=== PATIENT | female | born 1985 | race Caucasian/White ===

== ENCOUNTER 2018-03-25 10:35 | Inpatient (IN) | payer OTHER ==
--- NOTE | 2018-03-24 08:46 | PDOC.LDHP ---
Labor and Delivery H&P Chief complaint: scheduled section HPI: 32 yo @ 39w0d by 13 week sono presents for RCD, h/o CS x3. Current gestational age (weeks): 39 Due date: 04/01/18 Dating criteria: second trimester ultrasound Grav: 4 Para: 3 OB History Details: 3 term CS Current complications: none Abnormal US findings: No Current medications: none Previous surgical history: low tranverse CS, other (Lasik) Allergies/Adverse Reactions: Allergies Allergy/AdvReac Type Severity Reaction Status Date / Time No Known Allergies Allergy Verified 09/09/13 15:15 Social history: none - Physical Exam Vital signs reviewed and normal: yes General: NAD Heart: RRR Lungs: nonlabored breathing Abdomen: gravid Extremeties: no edema FHT: category 1 (130s, mod alona, +accels, no decels) [place] contractions every: none - OB Labs Blood type: O RH: positive Antibody Screen: negative HIV: negative RPR: negative HEPSAg: negative 1 hour GCT: negative GBS: negative Urine drug screen: negative Rubella: immune Additional Labs: AFP tetra negative - Assessment 39w0d IUP H/O CS x3 - Plan Plan: to OR for section, informed consent obtained, anesthesia consult for pain management
[2018-03-25] MEDS ORDERED: PHENYLEPHRINE-NS 100 MCG/ML 10 ML SYRINGE ONE ×2 (10:47→14:44)
[2018-03-25] MEDS ORDERED: Lidocaine 1% PF 5 ML VIAL ONE ×2 (10:47→14:44)
[2018-03-25] MEDS ORDERED: ePHEDrine/0.9% NaCl/PF SYRINGE 50 mg/10 ml ONE ×2 (10:47→15:28)
[2018-03-25] MEDS ORDERED: Ondansetron HCl/PF 4 MG/2 ML Vial ONE ×2 (10:47→15:47)
[2018-03-25 12:13] VITALS: BMI 32.8
[2018-03-25] MEDS ORDERED: Bicitra 30 ML UDCUP ONE (12:17)
[2018-03-25] MEDS ORDERED: CEFAZOLIN/Water 2 GM/20 ML SYRINGE ONE (12:17)
[2018-03-25] MEDS ORDERED: Ondansetron HCl/PF 4 MG/2 ML Vial IVP PRN ×3 (12:21→20:58)
[2018-03-25] MEDS ORDERED: CEFAZOLIN/Water 2 GM/20 ML SYRINGE SLOW IVP SCH (12:30)
[2018-03-25] MEDS ORDERED: Bicitra 30 ML UDCUP PO SCH (12:30)
[2018-03-25] MEDS ORDERED: Lactated Ringer's 1,000 ML IV SCH (12:30)
[2018-03-25 12:47] LABS: Hemoglobin 12.9 g/dL (12.0-16.0); Mean Corpuscular HGB CONC 33.7 g/dL (32.0-36.0); Mean Corpuscular Hemoglobin 27.3 pg (27.0-31.0); Mean Corpuscular Volume 80.9 fL (78.0-98.0); Platelet Count 253 thou/uL (130-400); RBC Distribution Width 16.1 % (11.5-14.5); Red Blood Cell (RBC) Count 4.73 mill/uL (4.20-5.40); White Blood Cell (WBC) Count 6.5 thou/uL (4.8-10.8)
[2018-03-25] MEDS: Lactated Ringer's 1,000 ML IV SCH (12:57)
[2018-03-25 13:24] LABS: HBSAg Index 0.18 S/CO (0-0.99); Hep B Surf Ag Non-Reactive S/CO (NonReactive)
[2018-03-25 13:34] LABS: Syphilis Antibody Nonreactive (Nonreactive); Syphilis Antibody Index 0.02 S/CO (<1.00 Non-Reactive)
[2018-03-25] MEDS ORDERED: Morphine PF 1 MG/ML SYR ONE (14:42)
[2018-03-25] MEDS ORDERED: Oxytocin 10 UNITS/ML VIAL ONE (14:44)
[2018-03-25] MEDS ORDERED: Bupivacaine 0.75% W/DEXTROSE 8.25% 2 ML AMP ONE (14:44)
[2018-03-25] MEDS ORDERED: Ketorolac Tromethamine 30 MG/ML VIAL ONE (15:47)
[2018-03-25] MEDS ORDERED: NS / Oxytocin 40 units/1000ml 1,000 ML ONE (16:20)
--- NOTE | 2018-03-25 16:33 | PDOC.OPDEL ---
OB Operative/Delivery Note Delivery Dr/Surgeon: Ilene García DO Assist: Paras Swain DO Pre-Delivery Diagnosis: scheduled section Procedure/Post Delivery Dx: repeat low transverse CS Weeks gestation: 39 Anesthesia: spinal - Findings A Sex: female Weight: 8 lb 15 oz - 1 min: 9 - 5 min: 9 - Additional Findings/Plan Placenta delivered: manual removal findings: low transverse hysterotomy without extension, normal uterus, normal tubes, normal ovaries, other (severe adhesions) Estimated blood loss: 500 cc Compilations/Other Findings: Infant in cephalic presentation Clear AF Thin uterine window approx 2 cm wide and 5 cm in length Normal appearing placenta Post delivery plan: routine recovery
[2018-03-25] MEDS ORDERED: HYDROmorphone 2 MG/ML VIAL SLOW IVP PRN (17:34)
[2018-03-25] MEDS ORDERED: Meperidine HCl/PF 25 MG/ML VIAL SLOW IVP PRN (17:34)
[2018-03-25] MEDS ORDERED: Ketorolac Tromethamine 30 MG/ML VIAL IVP SCH (17:45)
[2018-03-25] MEDS ORDERED: Lanolin Ointment 7 GM TUBE TOP PRN (17:59)
[2018-03-25] MEDS ORDERED: Bisacodyl 10 MG SUPP PR PRN (17:59)
[2018-03-25] MEDS ORDERED: Methylergonovine 0.2 MG/ML VIAL IM PRN (17:59)
[2018-03-25] MEDS ORDERED: Misoprostol 200 MCG TAB PR PRN (17:59)
[2018-03-25] MEDS ORDERED: NS / Oxytocin 40 units/1000ml 1,000 ML IV SCH (17:59)
[2018-03-25] MEDS ORDERED: diphenhydrAMINE 25 MG CAP PO PRN (17:59)
[2018-03-25] MEDS ORDERED: Acetaminophen 325 MG TAB PO PRN (17:59)
[2018-03-25] MEDS ORDERED: HYDROcodone/Acetaminophen 5/325 mg Tablet PO PRN ×2 (17:59)
[2018-03-25] MEDS ORDERED: Zolpidem Tartrate 5 MG TAB PO PRN (17:59)
[2018-03-25] MEDS ORDERED: diphenhydrAMINE 50 MG/ML VIAL IVP PRN (20:58)
[2018-03-25] MEDS ORDERED: Naloxone HCl 0.4 mg/ml Vial IVP PRN ×2 (20:58)
[2018-03-25] MEDS ORDERED: Eucerin (Mineral Oil/Petrolatum,White) 30 gm Jar TOP PRN (20:58)
[2018-03-25] MEDS ORDERED: Naloxone HCl 0.4 mg/ml Vial IV PRN (20:58)
[2018-03-25] MEDS ORDERED: Promethazine HCl 25 MG/ML VIAL SLOW IVP PRN (20:58)
[2018-03-25] MEDS ORDERED: Communication Order-Pharmacy FS SCH (21:00)
[2018-03-25] MEDS ORDERED: Acetaminophen 1,000 MG in Premix Bag 1 BAG IVPB SCH ×2 (21:15→21:30)
[2018-03-25] MEDS ORDERED: Scopolamine 1.5 mg/72 hour Patch TD SCH (21:15)
[2018-03-25] MEDS ORDERED: Ibuprofen 800 MG TAB PO SCH (22:00)
[2018-03-25] MEDS: Famotidine/PF 20 mg/2ml Vial SLOW IVP SCH (22:20)
--- NOTE | 2018-03-25 23:44 | OP ---
PREOPERATIVE DIAGNOSES: 1. A 39-week 0 day intrauterine . 2. History of three prior deliveries. POSTOPERATIVE DIAGNOSES: 1. A 39-week 0 day intrauterine . 2. History of three prior deliveries. PROCEDURE PERFORMED: Repeat low transverse delivery via Pfannenstiel skin incision. SURGEON: Ilene García D.O. BINGO CALLER: Paras Swain D.O. COMPLICATIONS: None. ANESTHESIA: Spinal. ESTIMATED BLOOD LOSS: 500 mL. URINE OUTPUT: 150 mL. IV FLUIDS: 2000 mL. FINDINGS: Dense scar tissue from the fascia to the uterus, then adhesions from the dome of the bladd er to the lower uterine segment. A uterine window approximately 5 cm in length and 2 cm in width. A viable female infant, Apgars 9 and 9, cephalic presentation, clear amniotic fluid. Normal appearing placenta. Normal appearing uterus, fallopian tubes and ovaries bilaterally. INDICATIONS FOR THE PROCEDURE: Capri Cabrera is a 32-year-old G4, P3 at 39 weeks and 0 days by good dating criteria, who has a history of three prior deliveries, who presents for a scheduled repeat delivery. PROCEDURE IN DETAIL: The patient was brought to the operating room. She was placed under spinal ane sthesia. The patient was placed in supine position with a leftward tilt. heart tones were ass essed in the 120s. The patient was then prepped and draped in a sterile fashion. An official timeou t was performed. Anesthesia was assessed and proven to be adequate. The patient did receive Ancef p rophylactically prior to the start of the procedure. A Pfannenstiel skin incision was made using the scalpel and this was carried down to the underlying fascial layer using the Bovie and the scalpel. The fascia was then incised in the midline and extended bilaterally using Monique scissors. The superio r aspect of the fascial incision was grasped using Solitario clamps and dissected using a scalpel. It w as very adherent therefore, minimal dissection was able to be performed. The same was done to the inferior aspect of the incision where the scar was transected using Mayos. The rectus abdominis muscles were grasped using Allis clamps, elevated, and the midline scar was then incised using the sc alpel and thin layers until the level of the peritoneum was achieved. The peritoneum was then graspe d using hemostats, elevated and incised using Metzenbaum scissors. This incision was then extended b oth using Mayos superiorly and inferiorly. There was dense scar that required dissection using both the Mayos and Bovie. bladder adhesions were then taken down using Metzenbaum scissors. Derek O retractor was then placed in the abdomen. A low transverse hysterotomy was made through the uteri ne window. The hysterotomy was extended using blunt dissection. The amniotic membranes were rupture d, noting clear amniotic fluid. Infant was delivered in cephalic presentation without difficulty. I nfant's cord was clamped and cut. was handed to the waiting Neonatology team. Cord blood was obtained. The placenta was delivered manually intact. The uterus was cleared of all clot and debri s. The hysterotomy was closed in a running locking fashion using #1 Monocryl. The hysterotomy was h emostatic after closure. The pelvis was irrigated and cleared of all clot and debris. The fallopian tubes and ovaries were evaluated and normal in appearance. Derek O retractor was removed from the abdomen. The muscle was then reapproximated in the midline using chromic suture. The fascia was the n closed in a running fashion from bilateral apices meeting in the midline. Subcutaneous layer was c opiously irrigated and hemostatic with use of the Bovie. Subcutaneous layer was closed using Vicryl and the skin was closed using Monocryl and Dermabond. The patient tolerated the procedure well. The re were no complications. Mother and baby were transferred to routine recovery.
[2018-03-26] MEDS: Docusate Calcium (SURFAK) 240 MG CAP PO SCH ×3 (00:09→20:53)
[2018-03-26] MEDS: Lactated Ringer's 1,000 ML IV SCH ×3 (02:21→11:37)
[2018-03-26] MEDS ORDERED: Simethicone Chewable 80 MG TAB PO PRN (03:00)
[2018-03-26] MEDS: Ketorolac Tromethamine 30 MG/ML VIAL IVP PRN ×3 (05:16→20:52)
[2018-03-26 06:03] LABS: Hemoglobin 10.3 g/dL (12.0-16.0); Mean Corpuscular HGB CONC 33.5 g/dL (32.0-36.0); Mean Corpuscular Hemoglobin 27.6 pg (27.0-31.0); Mean Corpuscular Volume 82.3 fL (78.0-98.0); Mean Platelet Volume 7.9 fL (7.4-10.4); Platelet Count 199 thou/uL (130-400); RBC Distribution Width 15.8 % (11.5-14.5); Red Blood Cell (RBC) Count 3.75 mill/uL (4.20-5.40); White Blood Cell (WBC) Count 7.4 thou/uL (4.8-10.8)
--- NOTE | 2018-03-26 06:33 | PDOC.PP ---
Post Progress Note Post Day #: 1 Subjective: Doing well. Pain controlled. Formula feeding. Minimal lochia. PO intake tolerated: yes Flatus: no Ambulation: no Vital Signs (12 hours) Temp Pulse Resp BP BP Pulse Ox 03/25/18 23:55 98.0 F 69 14 131/58 L 03/25/18 22:30 60 14 106/59 L 03/25/18 20:30 98.1 F 107 H 18 107/56 L 96 03/25/18 19:15 97.4 F L 59 L 18 114/60 97 03/25/18 19:00 63 20 113/66 03/25/18 18:45 57 L 18 97/53 L Weight Weight 197 lb - Physical Examination General: NAD Cardiovascular: no m/r/g, RRR Respiratory: non-labored breathing Abdominal: no distention, appropriately TTP Fundus firm & at: below umbilicus Extremities: negative homans (B) Deviation from normal: Dressing c/d/i Neurological: no gross focal deficits Psychiatric: A&Ox3 Result Diagrams: 03/26/18 04:56 Additional Labs: Post Labs Blood Type O POSITIVE 03/25/18 12:15 Hep Bs Antigen Non-Reactive S/CO (NonReactive) 03/25/18 12:15 (1) delivery delivered Code(s): O82 - ENCOUNTER FOR DELIVERY WITHOUT INDICATION Status: Acute - Assessment/Plan PPD 1 VSSAF Continue routine PP care. Remove ortiz and ambulate this AM.
[2018-03-26] MEDS ORDERED: HYDROcodone/Acetaminophen 5/325 mg Tablet PO PRN (09:00)
[2018-03-26] MEDS ORDERED: Zolpidem Tartrate 5 MG TAB PO PRN (09:00)
[2018-03-26] MEDS: Prenatal Vitamin 1 TAB PO SCH (09:07)
[2018-03-26] MEDS: Famotidine/PF 20 mg/2ml Vial SLOW IVP SCH (09:07)
[2018-03-26] MEDS: HYDROcodone/Acetaminophen 5/325 mg Tablet PO PRN (17:52)
[2018-03-26] MEDS ORDERED: Sodium Chloride 0.9% 10 ML ONE (20:38)
[2018-03-27] MEDS: HYDROcodone/Acetaminophen 5/325 mg Tablet PO PRN ×2 (00:55→09:51)
[2018-03-27] MEDS: Lactated Ringer's 1,000 ML IV SCH ×2 (01:03→06:22)
[2018-03-27] MEDS: Famotidine/PF 20 mg/2ml Vial SLOW IVP SCH ×2 (01:04→09:44)
[2018-03-27] MEDS ORDERED: Ibuprofen 800 MG TAB PO SCH (06:00)
[2018-03-27 08:10] VITALS: BP 102/58; TEMP 98.3
--- NOTE | 2018-03-27 08:22 | PDOC.PP ---
Post Progress Note Post Day #: 2 Subjective: No concerns. Minimal lochia. Pain controlled. Formula feeding. PO intake tolerated: yes Flatus: yes Ambulation: yes Vital Signs (12 hours) Temp Pulse Resp BP BP 03/27/18 08:09 98.3 F 54 L 20 102/58 L 03/27/18 03:05 98.6 F 52 L 16 118/60 03/27/18 00:45 98.7 F 65 18 110/59 L Weight Weight 197 lb - Physical Examination General: NAD Cardiovascular: RRR Respiratory: non-labored breathing Abdominal: no distention, appropriately TTP Fundus firm & at: below umbilicus Extremities: negative homans (B) Skin: CS incision dry & intact, no rash Neurological: no gross focal deficits Psychiatric: A&Ox3 Result Diagrams: 03/26/18 04:56 Additional Labs: Post Labs Blood Type O POSITIVE 03/25/18 12:15 Hep Bs Antigen Non-Reactive S/CO (NonReactive) 03/25/18 12:15 (1) delivery delivered Code(s): O82 - ENCOUNTER FOR DELIVERY WITHOUT INDICATION Status: Acute - Assessment/Plan PPD 2 VSSAF D/C home today F/U 2 weeks @
[2018-03-27] MEDS: Prenatal Vitamin 1 TAB PO SCH (09:43)
[2018-03-27] MEDS: Docusate Calcium (SURFAK) 240 MG CAP PO SCH (09:43)
== END 2018-03-27 10:30 | disposition home or self-care (01) | DRG 766 ==
LOC: L&D 10:35 → 3SW 17:44
PROVIDERS: ADMIT Obstetrics & Gynecology; ATTEND Obstetrics & Gynecology
PROC: 10D00Z1 Extraction of Products of Conception, Low, Open Approach (ICD-10-PCS; principal; 2018-03-25)
DX: O34.211 Maternal care for low transverse scar from previous cesarean delivery (principal); Z3A.39 39 weeks gestation of pregnancy; Z37.0 Single live birth
CPT/HCPCS: 36415; 51702; 85027; 86780; 86850; 86900; 86901; 87340; A4216; J0131; J1885; J2001; J2274; J2310; J2405; J2590; J3490; S0028

== ENCOUNTER 2020-02-19 09:40 | Emergency (ER) | payer SELFPAY ==
[2020-02-19] MEDS ORDERED: Ketorolac Tromethamine 30 MG/ML VIAL ONE (11:11)
--- NOTE | 2020-02-19 11:11 | ULT ---
PELVIC ULTRASOUND INCLUDING TRANSABDOMINAL AND TRANSVAGINAL AND VASCULAR DUPLEX WITH COLOR AND SPECTR AL DOPPLER IMAGING: HISTORY: Right lower quadrant pain, followup CT 02/18/2020. FINDINGS: Uterus measures 10.9 x 5.1 x 5.8 cm. Endometrium 0.7 cm. Right ovary 5.2 x 4.7 x 4.2 cm containing a complicated cyst measuring 4.3 x 3.6 x 4.0 cm with some minimal scattered debris, probably a hemorrhagic cyst. Left ovary measures 3.0 x 2.1 x 1.6 cm. Vascular flow was documented to the right ovary. Trace cul-de-sac fluid. IMPRESSION: Somewhat complicated probably hemorrhagic right ovarian cyst. No ultrasound evidence for ovarian tor stepan. Trace cul-de-sac fluid. POS: [facility]
== END 2020-02-19 11:30 | disposition home or self-care (01) ==
LOC: ERS 09:40
DX: N83.201 Unspecified ovarian cyst, right side (principal)
CPT/HCPCS: 76856; 96372; J1885